=== PATIENT | male | born 2000 | race African-American/Black ===

== ENCOUNTER 2020-03-31 14:08 | Emergency (ER) | payer MEDICAID ==
[~2020-03-31] VITALS: Ht 175.3 cm; Wt 107.0 kg
[2020-03-31] MEDS ORDERED: SODIUM CHLORIDE 0.9% 1,000 ML IV ONE (14:14)
[2020-03-31] MEDS ORDERED: MORPHINE SULFATE 4 MG/ML CPJ (NOT FOR IM USE) IV STA (14:14)
[2020-03-31] MEDS ORDERED: ONDANSETRON HCL 4MG/2ML INJ IV STA (14:14)
[2020-03-31] MEDS ORDERED: TETANUS, DIPHTHERIA, PERTUSSIS VAC/PF 0.5ML (>7YR OLD) IM ONE (14:15)
[2020-03-31] MEDS ORDERED: CEFAZOLIN 1000MG PREMIX 50 ML IV ONE (14:15)
[2020-03-31 14:36] LABS: BASOPHILS % 0.9 % (0.0-2.0); EOSINOPHILS % 2.5 % (0.0-5.0); HEMATOCRIT. 42.3 % (42.0-52.0); HEMOGLOBIN. 14.7 g/dL (14.0-18.0); LYMPHOCYTES % 48.1 % (20.0-50.0); MEAN CORPUSCULAR HEMOGLOBIN 31.3 pg (28.0-32.0); MEAN PLATELET VOLUME 8.3 fl (7.4-10.4); NEUTROPHILS % 36.5 % (40.0-76.0); PLATELET 232 x1000/uL (130-400)
[2020-03-31 14:38] LABS: CHLORIDE 108 mEq/L (98-107)
[2020-03-31 14:41] LABS: PROTHROMBIN TIME 10.5 sec (9.6-11.0)
[2020-03-31 14:42] LABS: ETHANOL BLOOD < 10 mg/dL
[2020-03-31] MEDS ORDERED: BACITRACIN ZINC OINT UDPKT TOP ONE (16:45)
[2020-03-31] MEDS ORDERED: KETOROLAC 15MG/ML VIAL IV ONE (17:00)
[2020-03-31 18:21] VITALS: BP 122/88
== END 2020-03-31 19:13 | disposition home or self-care (01) ==
LOC: ER 14:08
DX: S71.101A Unspecified open wound, right thigh, initial encounter (principal); W33.01XA Accidental discharge of shotgun, initial encounter; Y93.89 Activity, other specified; Y92.89 Other specified places as the place of occurrence of the external cause; Y99.8 Other external cause status
CPT/HCPCS: 36415; 73552; 80053; 80320; 85025; 85610; 90715; 96365; 96375; 99284; J0690; J1885; J2270; J2405; J7030; G0480

== ENCOUNTER 2022-04-11 22:35 | Emergency (ER) | payer MEDICAID | END 2022-04-11 23:00 | disposition left against medical advice (07) | LOC: ER 22:35 | DX: Z53.21 Procedure and treatment not carried out due to patient leaving prior to being seen by health care provider (principal) ==